=== PATIENT | male | born 1990 | race American Indian/Alaskan Native ===

== ENCOUNTER 2019-06-04 14:04 | Emergency (ER) | payer SELFPAY ==
[2019-06-04 15:38] VITALS: BP 126/74
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
== END 2019-06-04 17:36 | disposition left against medical advice (07) ==
LOC: ED 14:04
DX: M54.2 Cervicalgia (principal); M54.5 Low back pain; V49.49XA Driver injured in collision with other motor vehicles in traffic accident, initial encounter; Y93.89 Activity, other specified; Y92.488 Other paved roadways as the place of occurrence of the external cause; Y99.8 Other external cause status
CPT/HCPCS: 99281